=== PATIENT | female | born 1950 | race Caucasian/White ===

== ENCOUNTER 2018-05-07 21:09 | Inpatient (IN) ==
[2018-05-07] MEDS ORDERED: KETOROLAC 30 MG/1 ML VIAL IV STA (21:51)
[2018-05-07] MEDS ORDERED: SODIUM CHLORIDE 0.9% 1,000 ML IV STA (21:51)
[2018-05-07] MEDS ORDERED: ONDANSETRON 4 MG/2 ML VIAL IV STA (21:51)
[2018-05-07] MEDS ORDERED: fentaNYL 100 MCG/2 ML VIAL IV STA (21:52)
[2018-05-07 22:29] LABS: Basophils # 0.1 10*3/uL (0.0-0.2); Basophils % 0.7 % (0.0-0.8); Eosinophils # 0.9 10*3/uL (0.0-0.87); Eosinophils % 5.7 % (0.00-10.9); Hematocrit 46.1 VOL% (35.7-47.0); Hemoglobin 15.6 GM/DL (12.0-16.0); Immature Granulocytes % 0.6 %; Immature Granulocytes Absolute 0.09 #; Lymphocytes # 2.2 10*3/uL (1.4-4.0); Lymphocytes % 15.1 % (21.3-54.2); Mean Corpuscular HGB Conc 33.8 GM/DL (32-36); Mean Corpuscular Hemoglobin 33 PG (27-34); Mean Platelet Volume 10.8 FL (9.6-12.0); Monocytes # 0.8 10*3/uL (0.11-0.8); Monocytes % 5.2 % (1.7-12.7); Neutrophils # 10.8 10*3/uL (1.4-7.4); Neutrophils % 72.7 % (38.7-73.9); Platelet Count 377 T/CUMM (130-400); Red Cell Distribution Width 12.9 % (9.3-17.3); White Blood Count 14.9 T/CUMM (4-12)
[2018-05-07 22:39] LABS: Apearance,Urine Slightly Hazy (Clear); Bacteria,Urine Occasional /HPF (Few); Blood, Urine Negative (Negative); Glucose,Urine (UA) Negative (Negative); Hyaline Casts,Urine 3 /LPF (0-3); Ketones,Urine 5 mg/dL (Negative); Mucus,Urine Occasional /LPF (Occasional); Nitrite,Urine Negative (Negative); Protein,Urine 30 MG/DL; RBC,Urine 9 /HPF (0-4); Squamous Epithelial Cell,Urine Occasional /HPF (0-10); Urine Color Yellow (Yellow); Urine Specific Gravity 1.032 (1.001-1.035); Urine Urobilinogen < 2.0 EU/DL (0.2-1.0); WBC,Urine 56 /HPF (0-6)
[2018-05-07 22:43] LABS: Bilirubin,Urine Small mg/dL (Negative)
[2018-05-07] MEDS ORDERED: cefTRIAXone 1,000 MG in SODIUM CHLORIDE 0.9% 100 ML IV STA (22:54)
[2018-05-07 22:56] LABS: Alanine Aminotransferase 73 U/L (13-56); Albumin 3.8 G/DL (3.4-5.0); Alkaline Phosphatase 171 U/L (45-117); Aspartate Amino Transferase 65 U/L (0-37); Bilirubin,Total < 0.39 MG/DL (0.2-1.0); Blood Urea Nitrogen 24 MG/DL (7-18); Calcium 9.6 MG/DL (8.5-10.1); Glucose 142 MG/DL (74-106); Osmolality,Calculated 282.5 MOS/KG (273-304); Potassium 4.1 MMOL/L (3.5-5.1); Sodium 139 MMOL/L (136-145); Total Protein 8.7 G/DL (6.4-8.3)
[2018-05-07 23:15] LABS: Eosinophils 4 % (0-10); Lymphocytes 10 % (20-55); Platelet Estimate Normal; Segmented Neutrophils 82 % (50-85); Total Cells Counted 100
[2018-05-08] MEDS ORDERED: GLUCAGON 1 MG VIAL IM PRN (00:10)
[2018-05-08] MEDS ORDERED: DEXTROSE 50% 25 GM/50 ML VIAL IV PRN (00:10)
[2018-05-08] MEDS: SODIUM CHLORIDE 0.9% 1,000 ML IV SCH ×4 (01:26→23:34)
[2018-05-08] MEDS: LEVOFLOXACIN INJ 500 MG in PREMIX 1 EACH IV SCH (01:54)
[2018-05-08] MEDS: ONDANSETRON 4 MG/2 ML VIAL IV PRN ×4 (03:42→21:08)
[2018-05-08 06:20] LABS: Basophils # 0.1 10*3/uL (0.0-0.2); Basophils % 0.5 % (0.0-0.8); Eosinophils # 0.7 10*3/uL (0.0-0.87); Eosinophils % 7.4 % (0.00-10.9); Hematocrit 39.4 VOL% (35.7-47.0); Immature Granulocytes % 0.5 %; Immature Granulocytes Absolute 0.05 #; Lymphocytes # 1.8 10*3/uL (1.4-4.0); Lymphocytes % 19.5 % (21.3-54.2); Mean Corpuscular HGB Conc 33.8 GM/DL (32-36); Mean Corpuscular Hemoglobin 33 PG (27-34); Mean Corpuscular Volume 96.6 FL (87-102); Mean Platelet Volume 10.9 FL (9.6-12.0); Monocytes # 0.6 10*3/uL (0.11-0.8); Monocytes % 6.9 % (1.7-12.7); Neutrophils % 65.2 % (38.7-73.9); Red Blood Count 4.08 MC/CUMM (3.8-5.5); Red Cell Distribution Width 12.9 % (9.3-17.3)
[2018-05-08 06:38] LABS: Hemoglobin 13.3 GM/DL (12.0-16.0); Platelet Count 263 T/CUMM (130-400); White Blood Count 9.2 T/CUMM (4-12)
[2018-05-08 06:59] LABS: Alanine Aminotransferase 56 U/L (13-56); Albumin 2.8 G/DL (3.4-5.0); Alkaline Phosphatase 129 U/L (45-117); Aspartate Amino Transferase 48 U/L (0-37); Bilirubin,Total < 0.39 MG/DL (0.2-1.0); Blood Urea Nitrogen 22 MG/DL (7-18); Calcium 8.5 MG/DL (8.5-10.1); Glucose 141 MG/DL (74-106); Osmolality,Calculated 285.3 MOS/KG (273-304); Potassium 4.3 MMOL/L (3.5-5.1); Sodium 141 MMOL/L (136-145); Total Protein 6.8 G/DL (6.4-8.3)
[2018-05-08] MEDS: INSULIN REGULAR 100 UNIT/ML SUBCUT SCH ×4 (07:30→21:10)
[2018-05-08] MEDS: ENOXAPARIN 40 MG/0.4 ML SYRINGE SUBCUT SCH (09:37)
[2018-05-08] MEDS: MORPHINE 4 MG/1 ML VIAL IV PRN ×3 (11:12→22:32)
[2018-05-08] MEDS: amLODIPine 10 MG TABLET PO SCH (12:00)
[2018-05-08] MEDS: DESITIN 4OZ/NYSTATIN 15 GRAM MIXTURE PASTE TOP SCH ×2 (15:30→21:12)
[2018-05-08] MEDS: buPROPion SR 100 MG TABLET PO SCH (21:11)
[2018-05-09] MEDS: cloNIDine 0.1 MG TABLET PO PRN (00:32)
[2018-05-09] MEDS: LEVOFLOXACIN INJ 500 MG in PREMIX 1 EACH IV SCH (00:34)
[2018-05-09] MEDS: ONDANSETRON 4 MG/2 ML VIAL IV PRN ×4 (02:03→16:27)
[2018-05-09] MEDS: MORPHINE 4 MG/1 ML VIAL IV PRN ×4 (02:43→22:34)
[2018-05-09 05:10] LABS: Basophils # 0.1 10*3/uL (0.0-0.2); Basophils % 0.8 % (0.0-0.8); Eosinophils # 0.6 10*3/uL (0.0-0.87); Eosinophils % 8.5 % (0.00-10.9); Hemoglobin 12.3 GM/DL (12.0-16.0); Immature Granulocytes % 0.4 %; Immature Granulocytes Absolute 0.03 #; Lymphocytes # 1.5 10*3/uL (1.4-4.0); Lymphocytes % 19.9 % (21.3-54.2); Mean Corpuscular HGB Conc 32.4 GM/DL (32-36); Mean Corpuscular Hemoglobin 32 PG (27-34); Mean Corpuscular Volume 99.7 FL (87-102); Mean Platelet Volume 10.9 FL (9.6-12.0); Monocytes # 0.5 10*3/uL (0.11-0.8); Monocytes % 7.1 % (1.7-12.7); Neutrophils # 4.6 10*3/uL (1.4-7.4); Neutrophils % 63.3 % (38.7-73.9); Platelet Count 267 T/CUMM (130-400); Red Blood Count 3.81 MC/CUMM (3.8-5.5); Red Cell Distribution Width 12.9 % (9.3-17.3); White Blood Count 7.3 T/CUMM (4-12)
[2018-05-09 05:49] LABS: Calcium 7.7 MG/DL (8.5-10.1); Osmolality,Calculated 281.4 MOS/KG (273-304); Potassium 4.1 MMOL/L (3.5-5.1)
[2018-05-09] MEDS: INSULIN REGULAR 100 UNIT/ML SUBCUT SCH ×4 (07:46→22:33)
[2018-05-09] MEDS: LEVOTHYROXINE 112 MCG TABLET PO SCH (08:17)
[2018-05-09] MEDS: amLODIPine 10 MG TABLET PO SCH (08:17)
[2018-05-09] MEDS: ENOXAPARIN 40 MG/0.4 ML SYRINGE SUBCUT SCH (08:18)
[2018-05-09] MEDS: ARIPiprazole 10 MG TABLET PO SCH (08:18)
[2018-05-09] MEDS: DESITIN 4OZ/NYSTATIN 15 GRAM MIXTURE PASTE TOP SCH ×2 (08:19→22:37)
[2018-05-09] MEDS: buPROPion SR 100 MG TABLET PO SCH ×2 (08:20→22:33)
[2018-05-09] MEDS: SODIUM CHLORIDE 0.9% 1,000 ML IV SCH ×3 (10:46→21:10)
[2018-05-09] MEDS ORDERED: POLYETHYLENE GLYCOL POWDER 17 GM PACK PO PRN (13:40)
[2018-05-10] MEDS: LEVOFLOXACIN INJ 500 MG in PREMIX 1 EACH IV SCH (01:48)
[2018-05-10] MEDS: MORPHINE 4 MG/1 ML VIAL IV PRN ×5 (02:49→22:45)
[2018-05-10] MEDS: SODIUM CHLORIDE 0.9% 1,000 ML IV SCH ×2 (03:00→15:22)
[2018-05-10] MEDS: ENOXAPARIN 40 MG/0.4 ML SYRINGE SUBCUT SCH (08:23)
[2018-05-10] MEDS: buPROPion SR 100 MG TABLET PO SCH ×2 (08:24→21:55)
[2018-05-10] MEDS: ONDANSETRON 4 MG/2 ML VIAL IV PRN ×3 (08:24→22:58)
[2018-05-10] MEDS: amLODIPine 10 MG TABLET PO SCH (08:24)
[2018-05-10] MEDS: LEVOTHYROXINE 112 MCG TABLET PO SCH (08:24)
[2018-05-10] MEDS: ARIPiprazole 10 MG TABLET PO SCH (08:38)
[2018-05-10] MEDS: INSULIN REGULAR 100 UNIT/ML SUBCUT SCH ×4 (10:28→21:54)
[2018-05-10] MEDS: DESITIN 4OZ/NYSTATIN 15 GRAM MIXTURE PASTE TOP SCH ×2 (10:52→22:45)
[2018-05-10 12:14] LABS: Calcium 8.7 MG/DL (8.5-10.1); Osmolality,Calculated 284.1 MOS/KG (273-304); Potassium 4.1 MMOL/L (3.5-5.1)
[2018-05-10 14:06] LABS: Apearance,Urine CLEAR (Clear); Bacteria,Urine Occasional /HPF (Few); Bilirubin,Urine Negative (Negative); Blood, Urine Negative (Negative); Glucose,Urine (UA) Negative (Negative); Ketones,Urine Negative (Negative); Nitrite,Urine Negative (Negative); Protein,Urine Negative; RBC,Urine 2 /HPF (0-4); Squamous Epithelial Cell,Urine Occasional /HPF (0-10); Urine Color Straw (Yellow); Urine Specific Gravity 1.005 (1.001-1.035); Urine Urobilinogen < 2.0 EU/DL (0.2-1.0); WBC,Urine 11 /HPF (0-6)
[2018-05-11] MEDS: SODIUM CHLORIDE 0.9% 1,000 ML IV SCH ×3 (01:20→20:30)
[2018-05-11] MEDS: LEVOFLOXACIN INJ 500 MG in PREMIX 1 EACH IV SCH (01:23)
[2018-05-11] MEDS: MORPHINE 4 MG/1 ML VIAL IV PRN ×4 (03:54→19:51)
[2018-05-11 06:28] LABS: Basophils # 0.1 10*3/uL (0.0-0.2); Basophils % 0.7 % (0.0-0.8); Eosinophils # 0.7 10*3/uL (0.0-0.87); Eosinophils % 9.2 % (0.00-10.9); Hematocrit 37.8 VOL% (35.7-47.0); Hemoglobin 12.6 GM/DL (12.0-16.0); Immature Granulocytes % 0.6 %; Immature Granulocytes Absolute 0.04 #; Lymphocytes # 1.4 10*3/uL (1.4-4.0); Lymphocytes % 19.6 % (21.3-54.2); Mean Corpuscular HGB Conc 33.3 GM/DL (32-36); Mean Corpuscular Hemoglobin 33 PG (27-34); Mean Corpuscular Volume 97.7 FL (87-102); Mean Platelet Volume 11.8 FL (9.6-12.0); Monocytes # 0.5 10*3/uL (0.11-0.8); Monocytes % 6.6 % (1.7-12.7); Neutrophils # 4.6 10*3/uL (1.4-7.4); Neutrophils % 63.3 % (38.7-73.9); Platelet Count 183 T/CUMM (130-400); Red Blood Count 3.87 MC/CUMM (3.8-5.5); Red Cell Distribution Width 13.2 % (9.3-17.3); White Blood Count 7.3 T/CUMM (4-12)
[2018-05-11 06:35] LABS: Calcium 8.3 MG/DL (8.5-10.1); Potassium 4.1 MMOL/L (3.5-5.1)
[2018-05-11 06:53] LABS: Eosinophils 9 % (0-10); Lymphocytes 23 % (20-55); Segmented Neutrophils 62 % (50-85)
[2018-05-11 06:54] LABS: Platelet Estimate Adequate; Total Cells Counted 100
[2018-05-11] MEDS: INSULIN REGULAR 100 UNIT/ML SUBCUT SCH ×4 (08:06→20:30)
[2018-05-11] MEDS: buPROPion SR 100 MG TABLET PO SCH ×2 (08:19→20:30)
[2018-05-11] MEDS: amLODIPine 10 MG TABLET PO SCH (08:19)
[2018-05-11] MEDS: LEVOTHYROXINE 112 MCG TABLET PO SCH (08:19)
[2018-05-11] MEDS: ARIPiprazole 10 MG TABLET PO SCH (08:19)
[2018-05-11] MEDS: ONDANSETRON 4 MG/2 ML VIAL IV PRN ×3 (08:20→20:40)
[2018-05-11] MEDS: ENOXAPARIN 40 MG/0.4 ML SYRINGE SUBCUT SCH (08:20)
[2018-05-11] MEDS: DESITIN 4OZ/NYSTATIN 15 GRAM MIXTURE PASTE TOP SCH ×2 (16:05→20:30)
[2018-05-11] MEDS: cloNIDine 0.1 MG TABLET PO PRN (18:29)
[2018-05-12] MEDS: MORPHINE 4 MG/1 ML VIAL IV PRN ×3 (00:05→09:25)
[2018-05-12] MEDS: LEVOFLOXACIN INJ 500 MG in PREMIX 1 EACH IV SCH (00:09)
[2018-05-12] MEDS: ARIPiprazole 10 MG TABLET PO SCH (08:04)
[2018-05-12] MEDS: buPROPion SR 100 MG TABLET PO SCH (08:05)
[2018-05-12] MEDS: ENOXAPARIN 40 MG/0.4 ML SYRINGE SUBCUT SCH (08:05)
[2018-05-12] MEDS: amLODIPine 10 MG TABLET PO SCH (08:05)
[2018-05-12] MEDS: LEVOTHYROXINE 112 MCG TABLET PO SCH (08:05)
[2018-05-12] MEDS: DESITIN 4OZ/NYSTATIN 15 GRAM MIXTURE PASTE TOP SCH (08:05)
[2018-05-12] MEDS: INSULIN REGULAR 100 UNIT/ML SUBCUT SCH (10:15)
[2018-05-12 11:54] VITALS: BP 136/90
== END 2018-05-12 12:15 | disposition home or self-care (01) | DRG 690 ==
LOC: EDUNIT# → EDBD → N.ED 21:09 → N.3E 21:09
PROVIDERS: ADMIT Internal Medicine; ATTEND Internal Medicine

== ENCOUNTER 2018-05-16 18:17 | Inpatient (IN) ==
[2018-05-16] MEDS ORDERED: HYDROmorphone 2 MG/1 ML VIAL IV STA (18:52)
[2018-05-16] MEDS ORDERED: PANTOPRAZOLE 40 MG VIAL IV STA (18:52)
[2018-05-16] MEDS ORDERED: SODIUM CHLORIDE 0.9% 1,000 ML IV STA (18:52)
[2018-05-16] MEDS ORDERED: ONDANSETRON 4 MG/2 ML VIAL IV STA (18:52)
[2018-05-16 19:40] LABS: Basophils # 0.1 10*3/uL (0.0-0.2); Basophils % 0.8 % (0.0-0.8); Eosinophils # 0.6 10*3/uL (0.0-0.87); Eosinophils % 5.3 % (0.00-10.9); Hematocrit 42.9 VOL% (35.7-47.0); Hemoglobin 14.5 GM/DL (12.0-16.0); Immature Granulocytes % 0.4 %; Immature Granulocytes Absolute 0.04 #; Lymphocytes # 2.5 10*3/uL (1.4-4.0); Lymphocytes % 23.7 % (21.3-54.2); Mean Corpuscular HGB Conc 33.8 GM/DL (32-36); Mean Corpuscular Hemoglobin 33 PG (27-34); Mean Corpuscular Volume 96.6 FL (87-102); Mean Platelet Volume 10.5 FL (9.6-12.0); Monocytes # 0.7 10*3/uL (0.11-0.8); Monocytes % 6.6 % (1.7-12.7); Neutrophils # 6.8 10*3/uL (1.4-7.4); Neutrophils % 63.2 % (38.7-73.9); Platelet Count 417 T/CUMM (130-400); Red Blood Count 4.44 MC/CUMM (3.8-5.5); Red Cell Distribution Width 13.3 % (9.3-17.3); White Blood Count 10.7 T/CUMM (4-12)
[2018-05-16 20:09] LABS: Albumin 3.6 G/DL (3.4-5.0); Bilirubin,Total 0.4 MG/DL (0.2-1.0); Calcium 8.9 MG/DL (8.5-10.1); Lactic Acid 1.1 MMOL/L (0.4-2.0); Osmolality,Calculated 283.3 MOS/KG (273-304); Potassium 3.7 MMOL/L (3.5-5.1); Total Protein 7.2 G/DL (6.4-8.3)
[2018-05-16 20:24] LABS: Apearance,Urine CLEAR (Clear); Blood, Urine Negative (Negative); Glucose,Urine (UA) Negative (Negative); Ketones,Urine 5 mg/dL (Negative); Mucus,Urine Occasional /LPF (Occasional); Nitrite,Urine Negative (Negative); Protein,Urine 30 MG/DL; RBC,Urine 1 /HPF (0-4); Renal Epithelial Cells,Urine Occasional /HPF (<1); Squamous Epithelial Cell,Urine Occasional /HPF (0-10); Urine Color Yellow (Yellow); Urine Specific Gravity 1.035 (1.001-1.035); Urine Urobilinogen < 2.0 EU/DL (0.2-1.0); WBC,Urine 3 /HPF (0-6)
[2018-05-16 20:27] LABS: Bilirubin,Urine Small mg/dL (Negative)
[2018-05-16] MEDS ORDERED: DOCUSATE SODIUM 100 MG CAPSULE PO PRN (21:05)
[2018-05-16] MEDS ORDERED: ACETAMINOPHEN 325 MG TABLET PO PRN (21:05)
[2018-05-16] MEDS ORDERED: DEXTROSE 50% 25 GM/50 ML VIAL IV PRN (21:05)
[2018-05-16] MEDS ORDERED: GLUCAGON 1 MG VIAL IM PRN (21:05)
[2018-05-16] MEDS ORDERED: LORazepam 1 MG TABLET PO PRN (21:12)
[2018-05-16] MEDS: SODIUM CHLORIDE 0.9% 1,000 ML IV SCH (21:50)
[2018-05-16] MEDS ORDERED: PIPERACILLIN/TAZOBACTAM 3,375 MG in SODIUM CHLORIDE 0.9% 100 ML IV SCH (22:00)
[2018-05-16] MEDS: ONDANSETRON 4 MG/2 ML VIAL IV PRN (22:54)
[2018-05-16] MEDS: MORPHINE 4 MG/1 ML VIAL IV PRN (22:54)
[2018-05-17] MEDS: metroNIDAZOLE INJ 500 MG in PREMIX 1 EACH IV SCH ×4 (00:16→19:15)
[2018-05-17] MEDS: traZODone 50 MG TABLET PO PRN (00:37)
[2018-05-17] MEDS: SODIUM CHLORIDE 0.9% 1,000 ML IV SCH ×3 (01:19→22:17)
[2018-05-17] MEDS: MORPHINE 4 MG/1 ML VIAL IV PRN ×5 (02:40→22:40)
[2018-05-17 05:33] LABS: Basophils # 0.1 10*3/uL (0.0-0.2); Eosinophils # 0.7 10*3/uL (0.0-0.87); Eosinophils % 8.9 % (0.00-10.9); Hemoglobin 13.6 GM/DL (12.0-16.0); Immature Granulocytes % 0.4 %; Immature Granulocytes Absolute 0.03 #; Lymphocytes # 2.5 10*3/uL (1.4-4.0); Lymphocytes % 31.9 % (21.3-54.2); Mean Corpuscular HGB Conc 33.2 GM/DL (32-36); Mean Corpuscular Hemoglobin 32 PG (27-34); Mean Corpuscular Volume 97.4 FL (87-102); Mean Platelet Volume 10.4 FL (9.6-12.0); Monocytes # 0.5 10*3/uL (0.11-0.8); Neutrophils # 4.1 10*3/uL (1.4-7.4); Neutrophils % 51.8 % (38.7-73.9); Platelet Count 393 T/CUMM (130-400); Red Blood Count 4.21 MC/CUMM (3.8-5.5); Red Cell Distribution Width 13.6 % (9.3-17.3); White Blood Count 7.8 T/CUMM (4-12)
[2018-05-17 06:03] LABS: Calcium 7.9 MG/DL (8.5-10.1); Osmolality,Calculated 281.3 MOS/KG (273-304); Potassium 3.6 MMOL/L (3.5-5.1)
[2018-05-17] MEDS ORDERED: LEVOTHYROXINE 112 MCG TABLET PO SCH (06:30)
[2018-05-17] MEDS: INSULIN LISPRO 100 UNIT/ML SUBCUT SCH ×4 (08:07→21:43)
[2018-05-17] MEDS: ONDANSETRON 4 MG/2 ML VIAL IV PRN ×2 (08:28→19:05)
[2018-05-17] MEDS: ARIPiprazole 10 MG TABLET PO SCH (09:35)
[2018-05-17] MEDS: MULTIVITAMIN (CENTRUM) TABLET PO SCH (09:35)
[2018-05-17] MEDS: amLODIPine 10 MG TABLET PO SCH (09:35)
[2018-05-17] MEDS: PANTOPRAZOLE 40 MG TABLET PO SCH (09:35)
[2018-05-17] MEDS: LEVOFLOXACIN 500 MG TABLET PO SCH (09:35)
[2018-05-17] MEDS: INSULIN NPH/REGULAR 70/30 100 UNIT/ML SUBCUT SCH ×2 (09:36→21:44)
[2018-05-17] MEDS ORDERED: BISACODYL 5 MG TABLET PO ONE (12:00)
[2018-05-17] MEDS ORDERED: POLYETHYLENE GLYCOL POWDER 255 GM BOTTLE PO ONE (14:00)
[2018-05-17] MEDS: LISINOPRIL 10 MG TABLET PO SCH (16:00)
[2018-05-18] MEDS: ONDANSETRON 4 MG/2 ML VIAL IV PRN ×4 (00:37→21:59)
[2018-05-18] MEDS: metroNIDAZOLE INJ 500 MG in PREMIX 1 EACH IV SCH ×3 (02:29→18:20)
[2018-05-18] MEDS: MORPHINE 4 MG/1 ML VIAL IV PRN ×3 (03:15→14:50)
[2018-05-18 05:22] LABS: Basophils # 0.1 10*3/uL (0.0-0.2); Basophils % 0.8 % (0.0-0.8); Eosinophils # 0.5 10*3/uL (0.0-0.87); Eosinophils % 6.9 % (0.00-10.9); Hematocrit 41.3 VOL% (35.7-47.0); Hemoglobin 13.4 GM/DL (12.0-16.0); Immature Granulocytes % 0.4 %; Immature Granulocytes Absolute 0.03 #; Lymphocytes # 1.4 10*3/uL (1.4-4.0); Lymphocytes % 19.6 % (21.3-54.2); Mean Corpuscular HGB Conc 32.4 GM/DL (32-36); Mean Corpuscular Hemoglobin 32 PG (27-34); Mean Corpuscular Volume 97.6 FL (87-102); Mean Platelet Volume 10.3 FL (9.6-12.0); Monocytes # 0.5 10*3/uL (0.11-0.8); Monocytes % 6.6 % (1.7-12.7); Neutrophils # 4.7 10*3/uL (1.4-7.4); Neutrophils % 65.7 % (38.7-73.9); Platelet Count 334 T/CUMM (130-400); Red Blood Count 4.23 MC/CUMM (3.8-5.5); Red Cell Distribution Width 13.5 % (9.3-17.3); White Blood Count 7.1 T/CUMM (4-12)
[2018-05-18 05:50] LABS: Calcium 7.9 MG/DL (8.5-10.1); Potassium 3.7 MMOL/L (3.5-5.1)
[2018-05-18 05:55] LABS: Risk Ratio 4.46; VLDL CHOLESTEROL 34.8 MG/DL
[2018-05-18] MEDS: LEVOTHYROXINE 125 MCG TABLET PO SCH (06:25)
[2018-05-18] MEDS ORDERED: MAGNESIUM CITRATE 300 ML BOTTLE PO ONE (06:45)
[2018-05-18] MEDS: INSULIN LISPRO 100 UNIT/ML SUBCUT SCH ×4 (07:30→23:04)
[2018-05-18] MEDS ORDERED: PROPOFOL 200 MG/20 ML VIAL IV ONE (09:00)
[2018-05-18] MEDS ORDERED: LIDOCAINE 1% 5 ML VIAL ONE (09:00)
[2018-05-18] MEDS: ARIPiprazole 10 MG TABLET PO SCH (09:34)
[2018-05-18] MEDS: MULTIVITAMIN (CENTRUM) TABLET PO SCH (09:34)
[2018-05-18] MEDS: INSULIN NPH/REGULAR 70/30 100 UNIT/ML SUBCUT SCH ×2 (09:34→23:04)
[2018-05-18] MEDS: amLODIPine 10 MG TABLET PO SCH (09:35)
[2018-05-18] MEDS: LISINOPRIL 10 MG TABLET PO SCH (09:35)
[2018-05-18] MEDS: LEVOFLOXACIN 500 MG TABLET PO SCH (09:35)
[2018-05-18] MEDS: PANTOPRAZOLE 40 MG TABLET PO SCH (09:36)
[2018-05-18] MEDS: SODIUM CHLORIDE 0.9% 1,000 ML IV SCH ×2 (11:30→13:55)
[2018-05-18] MEDS: traZODone 50 MG TABLET PO PRN (21:56)
[2018-05-19] MEDS: metroNIDAZOLE INJ 500 MG in PREMIX 1 EACH IV SCH ×2 (04:00→11:05)
[2018-05-19] MEDS: SODIUM CHLORIDE 0.9% 1,000 ML IV SCH ×3 (04:32→12:00)
[2018-05-19] MEDS: LEVOTHYROXINE 125 MCG TABLET PO SCH (05:35)
[2018-05-19] MEDS: INSULIN LISPRO 100 UNIT/ML SUBCUT SCH ×2 (07:30→11:40)
[2018-05-19] MEDS: LISINOPRIL 10 MG TABLET PO SCH (08:33)
[2018-05-19] MEDS: LEVOFLOXACIN 500 MG TABLET PO SCH (08:34)
[2018-05-19] MEDS: PANTOPRAZOLE 40 MG TABLET PO SCH (08:34)
[2018-05-19] MEDS: amLODIPine 10 MG TABLET PO SCH (08:34)
[2018-05-19] MEDS: ARIPiprazole 10 MG TABLET PO SCH (08:34)
[2018-05-19] MEDS: MULTIVITAMIN (CENTRUM) TABLET PO SCH (08:34)
[2018-05-19] MEDS: ONDANSETRON 4 MG/2 ML VIAL IV PRN (08:39)
[2018-05-19] MEDS: INSULIN NPH/REGULAR 70/30 100 UNIT/ML SUBCUT SCH (08:42)
[2018-05-19 12:20] VITALS: BP 110/59
== END 2018-05-19 14:45 | disposition home or self-care (01) | DRG 392 ==
LOC: N.ED 18:17 → SUATTDRO 21:05 → N.EDINP 21:05 → N.3E 23:43
PROVIDERS: ADMIT Internal Medicine; ATTEND Hospitalist
PROC: COLONBX (2018-05-18 11:50)

== ENCOUNTER 2018-06-26 22:10 | Observation (INO) ==
[2018-06-26] MEDS ORDERED: DIPH/TET/ACEL PERT BOOSTER VACCINE 0.5 ML VIAL IM ONE (22:41)
[2018-06-26] MEDS ORDERED: SODIUM CHLORIDE 0.9% 500 ML IV STA (22:41)
[2018-06-26 23:05] LABS: ABG Base Excess 0.3 MMOL/L (-2.5-2.5); ABG HCO3 24.6 MMOL/L (20-26); ABG Oxygen Saturation 96.8 % (95-100); ABG PCO2 38.2 MM HG (35-48); ABG PH 7.416 (7.35-7.45); ABG PO2 91.2 MM HG (80-95); ABG TCO2 20.8 MMOL/L (23-27)
[2018-06-26 23:31] LABS: Apearance,Urine CLEAR (Clear); Bacteria,Urine Occasional /HPF (Few); Bilirubin,Urine Negative (Negative); Blood, Urine Negative (Negative); Glucose,Urine (UA) Negative (Negative); Ketones,Urine Negative (Negative); Nitrite,Urine Negative (Negative); Protein,Urine Negative; Urine Color Straw (Yellow); Urine Specific Gravity 1.008 (1.001-1.035); Urine Urobilinogen < 2.0 EU/DL (0.2-1.0); WBC,Urine <1 /HPF (0-6)
[2018-06-26 23:56] LABS: Barbiturates Screen,Urine Negative (Negative); Benzodiazepines Screen,Urine Negative (Negative); Cannabinoid Screen,Urine Negative (Negative); Opiate Screen,Urine Negative (Negative); Phencyclidine Screen,Urine Negative (Negative)
[2018-06-27 00:19] LABS: Ammonia 17 UMOL/L (11-32)
[2018-06-27 00:23] LABS: Alanine Aminotransferase 73 U/L (13-56); Albumin 3.6 G/DL (3.4-5.0); Alkaline Phosphatase 150 U/L (45-117); Aspartate Amino Transferase 55 U/L (0-37); Bilirubin,Total < 0.39 MG/DL (0.2-1.0); Blood Urea Nitrogen 15 MG/DL (7-18); Calcium 8.6 MG/DL (8.5-10.1); Glucose 150 MG/DL (74-106); Osmolality,Calculated 280.5 MOS/KG (273-304); Potassium 4.1 MMOL/L (3.5-5.1); Sodium 139 MMOL/L (136-145); Total Protein 8.2 G/DL (6.4-8.3); Troponin I < 0.015 NG/ML (0.00-0.045)
[2018-06-27 01:05] LABS: Basophils # 0.1 10*3/uL (0.0-0.2); Basophils % 0.6 % (0.0-0.8); Eosinophils # 0.6 10*3/uL (0.0-0.87); Eosinophils % 5.8 % (0.00-10.9); Hematocrit 45.6 VOL% (35.7-47.0); Hemoglobin 15.7 GM/DL (12.0-16.0); Immature Granulocytes % 0.5 %; Immature Granulocytes Absolute 0.05 #; Lymphocytes # 2.1 10*3/uL (1.4-4.0); Lymphocytes % 19.6 % (21.3-54.2); Mean Corpuscular HGB Conc 34.4 GM/DL (32-36); Mean Corpuscular Hemoglobin 33 PG (27-34); Mean Corpuscular Volume 94.4 FL (87-102); Mean Platelet Volume 10.3 FL (9.6-12.0); Monocytes # 0.9 10*3/uL (0.11-0.8); Monocytes % 7.9 % (1.7-12.7); Neutrophils # 7.1 10*3/uL (1.4-7.4); Neutrophils % 65.6 % (38.7-73.9); Platelet Count 326 T/CUMM (130-400); Red Blood Count 4.83 MC/CUMM (3.8-5.5); Red Cell Distribution Width 13.7 % (9.3-17.3); White Blood Count 10.8 T/CUMM (4-12)
[2018-06-27 01:10] LABS: PT Patient Result 10.3 SECS
[2018-06-27] MEDS ORDERED: ONDANSETRON 4 MG/2 ML VIAL IV PRN (02:18)
[2018-06-27] MEDS ORDERED: PROMETHAZINE 25 MG/1 ML VIAL IM PRN (02:18)
[2018-06-27 04:07] LABS: Alanine Aminotransferase 74 U/L (13-56); Albumin 3.7 G/DL (3.4-5.0); Alkaline Phosphatase 148 U/L (45-117); Aspartate Amino Transferase 59 U/L (0-37); Bilirubin,Indirect 0.3 MG/DL (0.0-1.0); Bilirubin,Total < 0.39 MG/DL (0.2-1.0); Total Protein 8.2 G/DL (6.4-8.3)
[2018-06-27] MEDS ORDERED: PNEUMOCOCCAL VACCINE (13 VALENT) 0.5 ML SYRINGE IM ONE (04:58)
[2018-06-27] MEDS ORDERED: INFLUENZA VIRUS VACCINE 0.5 ML SYRINGE IM ONE (05:01)
[2018-06-27] MEDS: SODIUM CHLORIDE 0.9% 1,000 ML IV SCH ×3 (05:45→21:15)
[2018-06-27 07:30] LABS: Hepatitis A Ab IgM Quant 0.18 Index; Hepatitis A Ab IgM Result Negative (Negative); Hepatitis B Core IgM Quant 0.17 Index; Hepatitis B Core IgM Result Negative (Negative); Hepatitis B Surface Ag Quant 0.26 Index; Hepatitis B Surface Ag Result Negative (Negative); Hepatitis C Virus Ab Result Negative (Negative)
[2018-06-27] MEDS ORDERED: GLUCAGON 1 MG VIAL IM PRN ×2 (09:51→09:56)
[2018-06-27] MEDS ORDERED: DEXTROSE 50% 25 GM/50 ML VIAL IV PRN ×2 (09:51→09:56)
[2018-06-27] MEDS: LOSARTAN/HCTZ 50-12.5 MG TABLET PO SCH (12:14)
[2018-06-27] MEDS ORDERED: ACETAMINOPHEN 500 MG TABLET PO ONE (19:58)
[2018-06-27] MEDS: ROSUVASTATIN 10 MG TABLET PO SCH (21:10)
[2018-06-27] MEDS: INSULIN NPH/REGULAR 70/30 100 UNIT/ML SUBCUT SCH (21:11)
[2018-06-28] MEDS: LEVOTHYROXINE 125 MCG TABLET PO SCH (05:41)
[2018-06-28] MEDS: SODIUM CHLORIDE 0.9% 1,000 ML IV SCH ×3 (05:41→20:22)
[2018-06-28 07:53] LABS: Osmolality,Calculated 282.1 MOS/KG (273-304); Potassium 3.7 MMOL/L (3.5-5.1)
[2018-06-28] MEDS: INSULIN NPH/REGULAR 70/30 100 UNIT/ML SUBCUT SCH ×2 (09:20→20:21)
[2018-06-28] MEDS: LOSARTAN/HCTZ 50-12.5 MG TABLET PO SCH (09:28)
[2018-06-28] MEDS: LISINOPRIL 10 MG TABLET PO SCH (09:28)
[2018-06-28] MEDS: ARIPiprazole 10 MG TABLET PO SCH (09:28)
[2018-06-28] MEDS: MULTIVITAMIN (CENTRUM) TABLET PO SCH (09:28)
[2018-06-28] MEDS: amLODIPine 10 MG TABLET PO SCH (09:28)
[2018-06-28] MEDS: PANTOPRAZOLE 40 MG TABLET PO SCH (09:28)
[2018-06-28] MEDS: ROSUVASTATIN 10 MG TABLET PO SCH (20:22)
[2018-06-29] MEDS: SODIUM CHLORIDE 0.9% 1,000 ML IV SCH ×3 (03:24→20:03)
[2018-06-29] MEDS: LEVOTHYROXINE 125 MCG TABLET PO SCH (05:33)
[2018-06-29] MEDS: LOSARTAN/HCTZ 50-12.5 MG TABLET PO SCH (10:51)
[2018-06-29] MEDS: PANTOPRAZOLE 40 MG TABLET PO SCH (10:51)
[2018-06-29] MEDS: MULTIVITAMIN (CENTRUM) TABLET PO SCH (10:51)
[2018-06-29] MEDS: ARIPiprazole 10 MG TABLET PO SCH (10:52)
[2018-06-29] MEDS: INSULIN NPH/REGULAR 70/30 100 UNIT/ML SUBCUT SCH ×2 (10:52→20:02)
[2018-06-29] MEDS: LISINOPRIL 10 MG TABLET PO SCH (10:53)
[2018-06-29] MEDS: amLODIPine 10 MG TABLET PO SCH (10:53)
[2018-06-29] MEDS: ROSUVASTATIN 10 MG TABLET PO SCH (20:02)
[2018-06-30] MEDS: SODIUM CHLORIDE 0.9% 1,000 ML IV SCH ×2 (04:08→11:49)
[2018-06-30] MEDS: LEVOTHYROXINE 125 MCG TABLET PO SCH (05:34)
[2018-06-30] MEDS: INSULIN NPH/REGULAR 70/30 100 UNIT/ML SUBCUT SCH (09:17)
[2018-06-30] MEDS: LOSARTAN/HCTZ 50-12.5 MG TABLET PO SCH (09:25)
[2018-06-30] MEDS: ARIPiprazole 10 MG TABLET PO SCH (09:26)
[2018-06-30] MEDS: PANTOPRAZOLE 40 MG TABLET PO SCH (09:27)
[2018-06-30] MEDS: LISINOPRIL 10 MG TABLET PO SCH (09:27)
[2018-06-30] MEDS: amLODIPine 10 MG TABLET PO SCH (09:27)
[2018-06-30] MEDS: MULTIVITAMIN (CENTRUM) TABLET PO SCH (09:27)
[2018-06-30 12:57] VITALS: BP 152/87
== END 2018-06-30 13:50 | disposition home or self-care (01) ==
LOC: EDBD → EDUNIT# → N.EDINP 22:10 → N.ED 22:10 → SUATTDRO 06-27 02:18 → N.3E 06-27 03:40
PROVIDERS: ADMIT Hospitalist